=== PATIENT | male | born 1980 ===

== ENCOUNTER 2023-07-04 00:21 | Emergency (ER) | payer MEDICAID, SELFPAY ==
[2023-07-04 00:27] VITALS: BP 171/106; PULSE 74; RESP 16; TEMP 36.3; O2SAT 98; BMI 24.3
== END 2023-07-04 01:21 | disposition left against medical advice (07) ==
PROVIDERS: Emergency Provider Emergency Medicine
DX: R21 Rash and other nonspecific skin eruption (principal); Z53.21 Procedure and treatment not carried out due to patient leaving prior to being seen by health care provider
CPT/HCPCS: 99281

== ENCOUNTER 2023-11-08 21:36 | Emergency (ER) | payer MEDICAID, SELFPAY ==
[2023-11-08 21:41] VITALS: BP 190/118; PULSE 108; RESP 20; TEMP 36.5; O2SAT 98; BMI 28.4
--- NOTE | 2023-11-08 22:30 | ED.SKABFB ---
HPI - Skin/Abscess/Foreign Bdy General Chief complaint: Skin/Abscess/Foreign Body Stated complaint: Rash - bit by dog in April Time Seen by Provider: 11/08/23 22:16 Source: patient Mode of arrival: ambulatory Limitations: no limitations History of Present Illness HPI narrative: Patient comes to the emergency room complaining of circular plaques without erythematous itchy and have been spreading since April. Patient denies any pain, states that he has tried topical antifungals without any relief. Related Data Previous Rx's Medication Instructions Recorded triamcinolone acetonide 0.1 % 1 appl topical TID #80 grams 11/08/23 topical cream Allergies Allergy/AdvReac Type Severity Reaction Status Date / Time No Known Allergies Allergy Verified 11/08/23 21:40 Review of Systems Review of Systems: Constitutional : No Weight loss, No Fever, No Chills, No Night Sweats, No Fatigue, No Malaise ENT/Mouth : No Hearing loss, No Ear Pain, No Nasal Congestion, No Sinus Pain, No Hoarseness, No sore throat, No Rhinorrhea, No Swallowing Difficulty Eyes: No Eye Pain, No Swelling, No Redness, No Foreign Body, No Discharge, No Vision Changes Cardiovascular : No Chest Pain, No SOB, No Dyspnea on Exertion, No Orthopnea, No Edema, No Palpitations Respiratory : No Cough, No Sputum, No Wheezing, No Smoke Exposure, No Dyspnea Gastrointestinal : No Nausea, No Vomiting, No Diarrhea, No Constipation, No abdominal Pain, No Hematochezia, No Melena Genitourinary : no irregular bleeding, No Dysuria, No Urinary Frequency, No Hematuria, No Urinary Incontinence, No Urgency, No Flank Pain, No Urinary Flow Changes, No Hesitancy Musculoskeletal : No joint pain, No Myalgias, No Joint Swelling Skin : Complaining of an itchy rash in circles in lower extremities, buttocks, face Neuro : No Weakness, No Numbness, No Paresthesias, No Loss of Consciousness, No Dizziness, No Headache Psych : No Anxiety/Panic, No Depression, No SI/HI/AH/VH, No Social Issues, Heme/Lymph: No Bruising, No Bleeding,No Lymphadenopathy Endocrine : No Polyuria, No Polydipsia, No Temperature Intolerance PMFSH Social History Social History Advance Directives: No Advance Directives Information Provided: No Physical Exam Vital Signs: Vital Signs: Last Vital Signs Temp 97.7 F 11/08/23 21:41 Pulse 108 H 11/08/23 21:41 Resp 20 11/08/23 21:41 BP 190/118 H 11/08/23 21:41 Pulse Ox 98 11/08/23 21:41 O2 Del Method Room Air 11/08/23 21:41 BMI result Body Mass Index 28.4 Const: Other: Appearance: Alert. Oriented X3. No acute distress. Eyes: Pupils equal, round and reactive to light. ENT: Pharynx normal. Neck: Normal inspection. Neck supple. No lymph nodes noted. No crepitus CVS: Normal heart rate and rhythm. Pulses normal. Normal S1 and S2 Respiratory: No respiratory distress. Breath sounds normal. No Wheezing. No rales Abdomen: Soft and nontender. No rigidity. No distention. Skin: Patient has developed blacks especially in the lower extremities , buttocks, smaller ones in bilateral arms and face, pérez scales present Extremities: No lower extremity edema. No Lacerations. No Rash Neuro: Oriented X 3. No motor deficit. No sensory deficit. Moving all extremities. No slurred speech. CN 2 through 12 grossly intact Psych: calm, cooperative, normal affect Medical Decision Making Medical Decision Making MDM Narrative: I discussed with the patient that this may be psoriasis. Patient will follow-up with his primary care physician. -it was noted that patient's blood pressure was elevated. Patient states that he is known to have very high blood pressure/white coat syndrome, but when he checks his BP at home, it is normal Differential Diagnosis Differential Diagnoses: The differential diagnosis associated with the presentation includes (Psoriasis, pityriasis rosea, eczema, tinea ) Discharge Plan Discharge Clinical Impression: Psoriasis and similar disorder Patient Disposition: Home, Self-Care Instructions: Psoriasis (ED) Additional Instructions: Please follow-up with your primary care physician tomorrow. You may need a referral to Dermatology. If you have any worsening or new symptoms, please return to the emergency room or call 911 Prescriptions: New triamcinolone acetonide 0.1 % cream 1 appl topical TID Qty: 80 0RF Rx Instructions: Do not apply to face
== END 2023-11-08 22:53 | disposition home or self-care (01) ==
PROVIDERS: Emergency Provider Emergency Medicine
DX: L40.8 Other psoriasis (principal); R03.0 Elevated blood-pressure reading, without diagnosis of hypertension
CPT/HCPCS: 99282; 99283